=== PATIENT | female | born 1925 | race Two or more races ===

== ENCOUNTER → 2017-02-11 | Outpatient (CLI) | payer OTHER ==
[~2017-02-11] MED LIST: ACET-66 PO; AMIO200 PO; AMLO-511 PO; ASPI-1182 PO; ATOR20TA86 PO; CHOL10002 PO; CYAN100099 PO; DOCU250C28 PO; FURO40 PO; LETR2.5 PO; LEVO25TA9 PO; METO100XL PO; OMEP20 PO
== END | disposition home or self-care (01) ==
LOC: RADPV 09:17
PROVIDERS: ATTEND Internal Medicine Cardiovascular Disease
DX: K80.20 Calculus of gallbladder without cholecystitis without obstruction (principal)
CPT/HCPCS: 76700